=== PATIENT | male | born 2000 | race Hispanic/Latino ===

== ENCOUNTER 2019-08-11 16:52 | Emergency (ER) | payer OTHER ==
[2019-08-11] MEDS ORDERED: ACETAMINOPHEN EXTRA STRENGTH 500 MG TABLET ONE (17:06)
[2019-08-11] MEDS ORDERED: IBUPROFEN 600 MG TABLET ONE (17:10)
[2019-08-11] MEDS ORDERED: SODIUM CHLORIDE 0.9% 1000ML 1,000 ML IV ONE (17:52)
[2019-08-11 18:05] LABS: BASOPHILS % (AUTO) 0.1 % (0.0-5.0); EOSINOPHILS % (AUTO) 1.3 % (0.0-8.0); HEMATOCRIT 40.7 % (42-54); LYMPHOCYTES % (AUTO) 15.2 % (21.0-51.0); MEAN CORPUSCULAR HEMOGLOBIN 29.3 pg (27.0-33.0); MEAN CORPUSCULAR HGB CONC 34.2 g/dL (32.0-36.0); MEAN CORPUSCULAR VOLUME 85.7 fL (80-100); MONOCYTES % (AUTO) 9.1 % (3.0-13.0); PLATELET COUNT (AUTO) 208 K/uL (130-400); RED BLOOD CELL COUNT(AUTO) 4.75 MIL/uL (4.50-6.20); RED CELL DISTRIBUTION WIDTH 12.5 % (11.0-15.5); WHITE BLOOD COUNT (AUTO) 9.1 K/uL (4.8-10.8)
[2019-08-11 18:06] LABS: APPEARANCE,URINE CLEAR (CLEAR); BILIRUBIN,URINE SMALL (NEGATIVE); COLOR,URINE YELLOW (YELLOW); GLUCOSE, URINE (UA) NEGATIVE (NEGATIVE); KETONES,URINE NEGATIVE (NEGATIVE); LEUKOCYTE ESTERASE ,URINE TRACE (NEGATIVE); NITRATE,URINE POSITIVE (NEGATIVE); OCCULT BLOOD,URINE NEGATIVE (NEGATIVE); PH,URINE 7.5 (5.0-8.0); PROTEIN,URINE TRACE mg/dL (NEGATIVE); UROBILINOGEN,URINE 0.2 mg/dL (0.2-1.0)
[2019-08-11 18:17] LABS: CREATININE 1.1 mg/dL (0.5-1.5); POTASSIUM 3.5 mmol/L (3.5-5.1)
[2019-08-11 18:19] LABS: BACTERIA,URINE Few /HPF (None Seen); RBC,URINE None Seen /HPF (0-1); SQUAMOUS EPITHELIAL CELL,UR Rare /HPF (0-2)
[2019-08-11 18:23] LABS: ALBUMIN 3.8 g/dL (3.5-5.0); BILIRUBIN,TOTAL 0.7 mg/dL (0.2-1.0); TOTAL PROTEIN, SERUM 7.7 g/dL (6.0-8.3)
[2019-08-11 19:40] LABS: BAND NEUTROPHILS % (MANUAL) 11 % (0-2); LYMPHOCYTES % (MANUAL) 14 % (22-44); MAN.DIFF COMMENT-IMPRESSION MANUAL DIFFERENTIAL; METAMYELOCYTES % 1 % (0-0); MONOCYTES % (MANUAL) 11 % (2-9); REACTIVE LYMPHOCYTES 3 % (0-0); SEGMENTED NEUTROPHILS % 60 % (40-70)
[2019-08-11] MEDS ORDERED: DOXYCYCLINE HYCLATE 100 MG TABLET PO ONE (20:02)
[2019-08-11 20:11] LABS: PLATELET MORPHOLOGY COMMENT ADEQUATE
== END 2019-08-11 20:12 | disposition home or self-care (01) ==
LOC: EDH 16:52
DX: N39.0 Urinary tract infection, site not specified (principal); R50.9 Fever, unspecified
CPT/HCPCS: 36415; 74176; 80053; 81001; 83605; 83690; 85025; 86701; 87040 ×2; 87088; 87390; 87804 ×2; 99285; J7030

== ENCOUNTER 2019-08-16 21:40 | Emergency (ER) | payer OTHER ==
[2019-08-16 22:57] LABS: APPEARANCE,URINE Clear (CLEAR); BILIRUBIN,URINE Negative (NEGATIVE); COLOR,URINE Dark Yellow (YELLOW); GLUCOSE, URINE (UA) Negative (NEGATIVE); KETONES,URINE Negative (NEGATIVE); LEUKOCYTE ESTERASE ,URINE Negative (NEGATIVE); NITRATE,URINE Negative (NEGATIVE); OCCULT BLOOD,URINE Nonhemolyzed Trace (NEGATIVE); PH,URINE 5.5 (5.0-8.0); PROTEIN,URINE Negative (NEGATIVE)
[2019-08-16 23:16] LABS: BACTERIA,URINE None Seen /HPF (None Seen); MUCUS,URINE Moderate LPF (None Seen); SQUAMOUS EPITHELIAL CELL,UR Few /HPF (0-2); WBC,URINE None Seen /HPF (0-1)
[2019-08-16] MEDS ORDERED: CEFTRIAXONE SODIUM 500 MG VIAL ONE (23:26)
[2019-08-16] MEDS ORDERED: LIDOCAINE HCL-MPF 1% 2ML VIAL ONE (23:27)
[2019-08-16] MEDS ORDERED: SULFAMETHOX-TMP DS 800/160 TAB ONE (23:27)
== END 2019-08-16 23:40 | disposition home or self-care (01) ==
LOC: EDH 21:40
DX: N34.1 Nonspecific urethritis (principal)
CPT/HCPCS: 81001; 87088; 87486; 87797; 96372; 99283; J0696; J3490

== ENCOUNTER 2020-07-24 19:15 | Emergency (ER) | payer SELFPAY ==
[2020-07-24 20:49] LABS: BASOPHILS % (AUTO) 0.3 % (0.0-5.0); EOSINOPHILS % (AUTO) 1.6 % (0.0-8.0); HEMATOCRIT 42.4 % (42-54); LYMPHOCYTES % (AUTO) 40.5 % (21.0-51.0); MEAN CORPUSCULAR HEMOGLOBIN 29.5 pg (27.0-33.0); MEAN CORPUSCULAR HGB CONC 34.7 g/dL (32.0-36.0); MEAN CORPUSCULAR VOLUME 85.1 fL (80-100); MONOCYTES % (AUTO) 6.9 % (3.0-13.0); NEUTROPHILS % (AUTO) 50.6 % (40.0-77.0); PLATELET COUNT (AUTO) 293 K/uL (130-400); RED BLOOD CELL COUNT(AUTO) 4.98 MIL/uL (4.50-6.20); RED CELL DISTRIBUTION WIDTH 11.9 % (11.0-15.5); WHITE BLOOD COUNT (AUTO) 6.8 K/uL (4.8-10.8)
[2020-07-24 21:05] LABS: ALBUMIN 3.9 g/dL (3.5-5.0); BILIRUBIN,TOTAL 0.7 mg/dL (0.2-1.0); CREATININE 1.1 mg/dL (0.5-1.5); POTASSIUM 3.6 mmol/L (3.5-5.1); TOTAL PROTEIN, SERUM 7.8 g/dL (6.0-8.3)
== END 2020-07-24 22:11 | disposition home or self-care (01) ==
LOC: EDH 19:15
DX: J06.9 Acute upper respiratory infection, unspecified (principal); G93.3 Postviral and related fatigue syndromes
CPT/HCPCS: 36415; 71045; 80053; 85025

== ENCOUNTER 2023-09-12 05:56 | Emergency (ER) | payer BC ==
[~2023-09-12] VITALS: Ht 175.3 cm; Wt 72.6 kg
[2023-09-12] MEDS: KETOROLAC 30MG VIAL (30MG/ML) IVP ONE (06:20)
[2023-09-12] MEDS: METOCLOPRAMIDE 10 MG/2 ML VIAL IVP ONE (06:20)
[2023-09-12] MEDS: 0.9%NACL 1000ML 1,000 ML IV ONE (06:20)
[2023-09-12] MEDS: FAMOTIDINE 20MG VIAL IV ONE ×2 (06:20→06:21)
[2023-09-12] MEDS: METOCLOPRAMIDE 10 MG/2 ML VIAL ONE (06:20)
[2023-09-12] MEDS: KETOROLAC 30MG VIAL (30MG/ML) ONE (06:21)
[2023-09-12 06:33] LABS: BASOPHILS # (AUTO) 0.04 K/uL (0.00-0.20); BASOPHILS % (AUTO) 0.3 % (0.0-5.0); EOSINOPHILS % (AUTO) 0.8 % (0.0-8.0); HEMATOCRIT 41.5 % (42-54); IMMATURE GRANULOCYTE ABSOLUTE 0.05 K/uL (0-1); MEAN CORPUSCULAR HEMOGLOBIN 29.8 pg (27.0-33.0); MEAN CORPUSCULAR HGB CONC 34.5 g/dL (32.0-36.0); MEAN CORPUSCULAR VOLUME 86.5 fL (79-99); MONOCYTES # (AUTO) 0.7 K/uL (0.1-1.0); MONOCYTES % (AUTO) 5.2 % (3.0-13.0); NEUTROPHILS # (AUTO) 9.6 K/uL (1.8-7.7); NEUTROPHILS % (AUTO) 77.3 % (40.0-77.0); PLATELET COUNT (AUTO) 292 K/uL (130-400); RED CELL DISTRIBUTION WIDTH 12.4 % (11.0-15.5); WHITE BLOOD COUNT (AUTO) 12.4 K/uL (4.8-10.8)
[2023-09-12 06:54] LABS: APPEARANCE,URINE CLEAR (CLEAR); BILIRUBIN,URINE NEGATIVE (NEGATIVE); COLOR,URINE LIGHT-YELLOW (YELLOW); GLUCOSE, URINE (UA) NEGATIVE (NEGATIVE); KETONES,URINE NEGATIVE (NEGATIVE); LEUKOCYTE ESTERASE ,URINE NEGATIVE Leu/uL (NEGATIVE); NITRATE,URINE NEGATIVE (NEGATIVE); OCCULT BLOOD,URINE SMALL (NEGATIVE); PH,URINE 5.5 (5.0-8.0); PROTEIN,URINE NEGATIVE (NEGATIVE); UROBILINOGEN,URINE 0.2 mg/dL (0.2-1.0)
[2023-09-12 07:04] LABS: ALBUMIN 4.5 g/dL (3.5-5.0); BILIRUBIN,TOTAL 0.5 mg/dL (0.2-1.0); CREATININE 1.3 mg/dL (0.5-1.5); POTASSIUM 3.8 mmol/L (3.5-5.1); TOTAL PROTEIN, SERUM 7.6 g/dL (6.0-8.3)
[2023-09-12 07:35] LABS: ADD UA MICROSCOPIC YES
[2023-09-12 07:39] LABS: MUCUS,URINE RARE LPF (None Seen)
[2023-09-12] MEDS ORDERED: ACET-2079 PO (09:51)
[2023-09-12] MEDS ORDERED: TAMS-1 PO (09:54)
[2023-09-12] MEDS ORDERED: CEPH500B PO (09:54)
[2023-09-12 10:10] VITALS: BP 117/67; PULSE 69; RESP 17; O2SAT 100
== END 2023-09-12 10:09 | disposition home or self-care (01) ==
LOC: EDH 05:56
DX: N23 Unspecified renal colic (principal); N13.2 Hydronephrosis with renal and ureteral calculous obstruction
CPT/HCPCS: 99284; 74176; 96374; 96375; 80053; 83690; 85025; 81001; 36415; J3490; J1885; J2765

== ENCOUNTER 2023-10-25 12:16 | Inpatient (IN) | payer BC ==
[~2023-10-25] VITALS: Ht 175.3 cm; Wt 68.6 kg
[~2023-10-25 12:16] MED LIST: AMOX1TAB16 PO; TAMS-1 PO
[2023-10-25 14:09] LABS: BASOPHILS # (AUTO) 0.02 K/uL (0.00-0.20); BASOPHILS % (AUTO) 0.3 % (0.0-5.0); EOSINOPHILS # (AUTO) 0.11 K/uL (0.00-0.70); EOSINOPHILS % (AUTO) 1.4 % (0.0-8.0); IMMATURE GRANULOCYTE ABSOLUTE 0.02 K/uL (0-1); LYMPHOCYTES # (AUTO) 2.2 K/uL (1.0-4.8); LYMPHOCYTES % (AUTO) 28.2 % (21.0-51.0); MEAN CORPUSCULAR HEMOGLOBIN 28.9 pg (27.0-33.0); MEAN CORPUSCULAR VOLUME 82.5 fL (79-99); MONOCYTES # (AUTO) 0.5 K/uL (0.1-1.0); MONOCYTES % (AUTO) 6.3 % (3.0-13.0); NEUTROPHILS # (AUTO) 4.9 K/uL (1.8-7.7); NEUTROPHILS % (AUTO) 63.5 % (40.0-77.0); PLATELET COUNT (AUTO) 425 K/uL (130-400); RED BLOOD CELL COUNT(AUTO) 4.85 MIL/uL (4.50-6.20); RED CELL DISTRIBUTION WIDTH 12.3 % (11.0-15.5); WHITE BLOOD COUNT (AUTO) 7.8 K/uL (4.8-10.8)
[2023-10-25 14:14] LABS: APPEARANCE,URINE CLEAR (CLEAR); BILIRUBIN,URINE NEGATIVE (NEGATIVE); COLOR,URINE LIGHT-YELLOW (YELLOW); GLUCOSE, URINE (UA) NEGATIVE (NEGATIVE); KETONES,URINE NEGATIVE (NEGATIVE); LEUKOCYTE ESTERASE ,URINE 25 Leu/uL (NEGATIVE); NITRATE,URINE NEGATIVE (NEGATIVE); OCCULT BLOOD,URINE LARGE (NEGATIVE); PROTEIN,URINE 100 mg/dL (NEGATIVE); UROBILINOGEN,URINE 0.2 mg/dL (0.2-1.0)
[2023-10-25 14:19] LABS: CREATININE 0.9 mg/dL (0.5-1.3); POTASSIUM 4.1 mmol/L (3.5-5.1)
[2023-10-25 14:21] LABS: ADD UA MICROSCOPIC YES
[2023-10-25 14:24] LABS: ALBUMIN 4.4 g/dL (3.5-5.0); BILIRUBIN,TOTAL 0.4 mg/dL (0.2-1.0); TOTAL PROTEIN, SERUM 8.7 g/dL (6.0-8.3)
[2023-10-25 14:25] LABS: MUCUS,URINE RARE LPF (None Seen); RBC,URINE TNTC /HPF (0-1)
[2023-10-25] MEDS ORDERED: ACETAMINOPHEN WITH CODEINE 1 TAB TAB PO PRN (14:30)
[2023-10-25] MEDS ORDERED: LACTULOSE 20 GM/30 ML UDCUP PO PRN (14:30)
[2023-10-25] MEDS ORDERED: DIPHENHYDRAMINE HCL 25 MG CAPSULE PO PRN (14:30)
[2023-10-25] MEDS ORDERED: GUAIFENESIN-DM 200/20 MG 10 ML PO PRN (14:30)
[2023-10-25] MEDS ORDERED: ONDANSETRON 4MG INJ IV PRN (14:30)
[2023-10-25] MEDS ORDERED: MAG/ALUM/SIMETH 30 ML UDCUP PO PRN (14:30)
[2023-10-25] MEDS ORDERED: NITROGLYCERIN 0.4 MG SL TAB SL PRN (14:30)
[2023-10-25 18:22] VITALS: O2SAT 99
[2023-10-25] MEDS: CEFTRIAXONE 1G VIAL IVPB SCH (18:24)
[2023-10-25 20:00] VITALS: BP 122/86; PULSE 60; RESP 18; O2SAT 97
[2023-10-25] MEDS: FAMOTIDINE 20MG VIAL IV SCH (20:13)
[2023-10-26] VITALS (9 sets, daily range): BP systolic 107–130; BP diastolic 70–85; PULSE 51–73; RESP 16–17; O2SAT 99
[2023-10-27 04:00] VITALS: BP 124/61; PULSE 67; RESP 17
[2023-10-27 08:00] VITALS: BP 118/81; PULSE 94; RESP 20
[2023-10-27 09:00] VITALS: O2SAT 100
[2023-10-27 12:00] VITALS: BP 109/80; PULSE 60; RESP 18
[2023-10-27] MEDS ORDERED: CEPH500B PO (15:14)
[2023-10-27 15:27] LABS: CREATININE 1.1 mg/dL (0.5-1.3)
== END 2023-10-27 16:15 | disposition home or self-care (01) | DRG 694 ==
LOC: EDH 12:16 → EDHIP 14:02 → 4CH 16:28
PROVIDERS: ADMIT Internal Medicine; ATTEND Internal Medicine
DX: N20.0 Calculus of kidney (principal); Z93.6 Other artificial openings of urinary tract status; Z87.442 Personal history of urinary calculi
CPT/HCPCS: 36415; 74176; 80048; 80053; 81001; 85025; 96375; G0378; J0696; J3490

== ENCOUNTER 2023-11-23 23:53 | Emergency (ER) | payer BC ==
[~2023-11-23] VITALS: Ht 177.8 cm; Wt 70.8 kg
[~2023-11-23 23:53] MED LIST changes: -AMOX1TAB16 PO; +CEPH500B PO
[2023-11-24 00:38] VITALS: BP 126/81; PULSE 65; RESP 18; O2SAT 99
== END 2023-11-24 00:42 | disposition home or self-care (01) ==
LOC: EDH 23:53
DX: N99.528 Other complication of incontinent external stoma of urinary tract (principal)
CPT/HCPCS: 99281